=== PATIENT | female | born 1950 | race African-American/Black ===

== ENCOUNTER 2017-08-05 13:25 | Emergency (ER) | payer MEDICARE, MEDICAID ==
[~2017-08-05] VITALS: Ht 162.6 cm; Wt 54.4 kg
[2017-08-05 13:32] VITALS: BP 141/83
[2017-08-05] MEDS ORDERED: TYLENOL EXTRA500 MG ORAL (14:18)
--- NOTE | 2017-08-05 14:22 | Emergency Room Report ---
History of Present Illness General Chief Complaint: Pain Source: Patient Present Illness HPI 67 yo female patient reports to ER complaining of right leg pain and numbness after walking. Patient denies recent injury. Denies recent travel. Reports numbness in right leg. Denies back pain. Denies hx of CA or drug use. Denies calf swelling. Denies taking blood thinning medication. Denies recent travel. Reports sleeping on her right side. Denies bowel or bladder problems. Patient reports taking Soma for pain symptoms. Denies fever, chest pain, SOB, abdominal pain, rash. Patient requesting pain medication. Allergies: Coded Allergies: No Known Allergies (Unverified , 08/05/17) Patient History Past Medical History: see triage record Reviewed Nursing Documentation: PMH: Agreed, PSxH: Agreed Nursing Documentation-PMH Past Medical History: No Stated History Review of Systems All Other Systems: negative except mentioned in HPI Physical Exam Vital Signs Date Time Temp Pulse Resp B/P (MAP) Pulse Ox O2 Delivery O2 Flow Rate FiO2 08/05/17 13:32 209.5 18 141/83 97 Room Air 209.5 08/05/17 13:32 95 Sp02 EP Interpretation: reviewed, normal General Appearance: well appearing, no apparent distress, alert, GCS 15, non- toxic Head: normocephalic, atraumatic Eyes: bilateral eye normal inspection, bilateral eye PERRL ENT: hearing grossly normal, normal pharynx, no angioedema, normal voice, uvula midline, moist mucus membranes Neck: full range of motion Respiratory: lungs clear, normal breath sounds, no rhonchi, no respiratory distress, no accessory muscle use, no wheezing, speaking full sentences Cardiovascular #1: regular rate, rhythm, no edema Cardiovascular #2: 2+ dorsalis pedis (R), 2+ dorsalis pedis (L) Musculoskeletal: back normal, digits/nails normal, gait/station normal, normal range of motion, non-tender, no calf tenderness, pelvis stable, Erin's Sign negative, other - no swelling, no TTP, Sensatin intact to light touch, negative syndesmotic squeeze test, NVI, Negative Kiera, Negative Greta Neurologic: alert, oriented x3, responsive, motor strength/tone normal, sensory intact Psychiatric: mood/affect normal Reflexes: 2+ knee (R), 2+ knee (L) Skin: no rash Lymphatic: no adenopathy Medical Decision Making PA Attestation Dr. Cameron is my supervising Physician whom patient management has been discussed with. Diagnostic Impression: Primary Impression: Lower extremity numbness ER Course Pt. presents to the ED c/o right leg pain and numbness. Ddx considered but are not limited to fracture, sprain, strain, contusion, cellulitis, DVT. Low suspicion for DVT per Wells criteria. Vital signs: are WNL, pt. is afebrile PE benign, full ROM, no swelling, no ecchymosis, no TTP. Patient able to ambulate independently, without difficulty. Does not require imaging at this time. ED COURSE: No interventions at this time. Patient reports symptoms OK now but when she walks outside "suddenly the pain will return." Crutches not required at this time. CURES report shows patient recently received prescription for Acetaminophen- Codeine 300-60 and Soma on July 19 2017. Will not provide further opiate pain medication at this time. DISCHARGE: -Rx provided for Tylenol for pain symptoms. At this time pt. is stable for d/c to home. Patient resting comfortably, in no acute distress, nontoxic appearing, smiling and talking on phone. Will provide printed patient care instructions, and any necessary prescriptions. Patient instructed to follow with primary care provider in 3 - 5 days and to request further orthopedic and cardiology follow-up. F/u for diabetes testing. Care plan and follow up instructions have been discussed with the patient prior to discharge. Patient instructed on RICE method: rest, ice, compression, elevation. Patient instructed to WBAT. Take medications as directed. Patient questions asked and answered. Patient reprots understanding and agreement to treatment plan. ER precautions given, patient instructed to return to ER immediately for any new or worsening of symptoms. Last Vital Signs Date Time Temp Pulse Resp B/P (MAP) Pulse Ox O2 Delivery O2 Flow Rate FiO2 08/05/17 13:32 98.6 95 18 141/83 97 Room Air 98.6 Disposition: HOME, SELF-CARE Condition: Stable Scripts Acetaminophen* (TYLENOL EXTRA STRENGTH*) 500 Mg Tablet 500 MG ORAL Q8H Y for Prn Headache/Temp > 101, #30 TAB 0 Refills Prov: Esteban Real 08/05/17 Patient Instructions: PAIN, Uncertain Cause (Acute) Additional Instructions: Patient instructed to follow up with primary care provider and discuss further referral to orthopedics. Discuss referral to cardiology. Discuss testing for Diabetes with PCP. Patient instructed on RICE method: rest, ice, compression, elevation. Patient instructed to WBAT. Take medications as directed. Patient questions asked and answered. ER precautions given, patient instructed to return to ER immediately for any new or worsening of symptoms. Esteban Real Aug 05, 2017 14:22
[2017-08-05 14:31] VITALS: BP 143/85
[2017-08-05 14:32] VITALS: BP 141/83
== END 2017-08-05 14:32 | disposition home or self-care (01) ==
LOC: EMR 14:07
DX: R20.0 Anesthesia of skin (principal); M79.604 Pain in right leg
CPT/HCPCS: 99284

== ENCOUNTER 2018-03-31 17:49 | Emergency (ER) | payer MEDICARE, MEDICAID ==
[~2018-03-31] VITALS: Ht 160 cm; Wt 64.9 kg
[~2018-03-31 17:49] MED LIST: TYLENOL EXTRA500 MG ORAL
[2018-03-31 18:16] VITALS: BP 149/93
--- NOTE | 2018-03-31 19:38 | Emergency Room Report ---
History of Present Illness General Chief Complaint: Skin Rash/Abscess Source: Patient Present Illness HPI Mrs. Roberts presents with infected bug bites of left foot and left arm. Has redness and swelling on left foot. NO fever. No known injury. No hx of DM Allergies: Coded Allergies: No Known Allergies (Unverified , 08/05/17) Nursing Documentation-[facility] Past Medical History: No History, Except For Hx Hypertension: Yes Review of Systems Constitutional: Denies: fever, malaise Skin: Reports: rash, change in color Physical Exam Vital Signs Date Time Temp Pulse Resp B/P (MAP) Pulse Ox O2 Delivery O2 Flow Rate FiO2 03/31/18 18:16 98.1 75 18 149/93 98 Room Air Sp02 EP Interpretation: reviewed, normal General Appearance: normal inspection, well appearing, no apparent distress, alert, GCS 15, non-toxic Eyes: bilateral eye normal inspection ENT: moist mucus membranes Respiratory: no respiratory distress Psychiatric: normal inspection, judgement/insight normal, memory normal Skin: other - two 1 cm areas of excoriations on left foot with 5 cm x 5 cm area of erythema and edema, left upper arm 1 cm small abrasion Medical Decision Making Diagnostic Impression: Primary Impression: Cellulitis of left foot ER Course rx: bactrim keflex for left foot cellulitis. no cellulitis of the left upper extremity Last Vital Signs Date Time Temp Pulse Resp B/P (MAP) Pulse Ox O2 Delivery O2 Flow Rate FiO2 03/31/18 18:16 98.1 75 18 149/93 98 Room Air Disposition: HOME, SELF-CARE Condition: Stable Referrals: NOT CHOSEN IPA/,REFERRING (PCP) Ashley Stephens MD Mar 31, 2018 19:38
[2018-03-31] MEDS ORDERED: CEPHALEXIN500 MG ORAL (19:40)
[2018-03-31] MEDS ORDERED: BACTRIM DS TAB1 EAC1 ORAL (19:40)
[2018-03-31 19:46] VITALS: BP 149/93
== END 2018-03-31 19:47 | disposition home or self-care (01) ==
LOC: EMR 18:46
DX: L03.116 Cellulitis of left lower limb (principal); I10 Essential (primary) hypertension
CPT/HCPCS: 99282

== ENCOUNTER → 2019-01-21 | Outpatient (CLI) | payer MEDICARE, MEDICAID ==
[~2019-01-21] MED LIST changes: +BACTRIM DS TAB1 EAC1 ORAL; +CEPHALEXIN500 MG ORAL
[2019-01-21 11:51] LABS: BASOPHILS % (AUTO) 0.9 % (0.0-2.0); EOSINOPHILS % (AUTO) 4.7 % (0.0-3.0); HEMATOCRIT 42.6 % (37.0-47.0); HEMOGLOBIN 14.1 G/DL (12.0-16.0); LYMPHOCYTES % (AUTO) 31.3 % (20.0-45.0); MEAN CORPUSCULAR VOLUME 95 FL (80-99); MONOCYTES % (AUTO) 8.9 % (1.0-10.0); NEUTROPHILS % (AUTO) 54.1 % (45.0-75.0); PLATELET COUNT 166 K/UL (150-450); RED CELL DISTRIBUTION WIDTH 12.1 % (11.6-14.8); WHITE BLOOD COUNT 7.8 K/UL (4.8-10.8)
[2019-01-21 12:16] LABS: ALANINE AMINOTRANSFERASE 18 U/L (12-78); ALBUMIN 3.8 G/DL (3.4-5.0); ALKALINE PHOSPHATASE 137 U/L (46-116); ANION GAP 7 mmol/L (5-15); ASPARTATE AMINO TRANSFERASE 19 U/L (15-37); BILIRUBIN,TOTAL 0.4 MG/DL (0.2-1.0); BLOOD UREA NITROGEN 22 mg/dL (7-18); CALCIUM 8.9 MG/DL (8.5-10.1); CARBON DIOXIDE 28 MMOL/L (21-32); CHLORIDE 109 MMOL/L (98-107); CHOLESTEROL 158 MG/DL (< 200); HDL CHOLESTEROL 64 MG/DL (40-60); POTASSIUM 3.6 MMOL/L (3.5-5.1); SODIUM 143 MMOL/L (136-145); TRIGLYCERIDES 51 MG/DL (30-150)
[2019-01-22 11:12] LABS: APPEARANCE,URINE CLEAR; BILIRUBIN, URINE NEGATIVE (NEGATIVE); COLOR,URINE PALE YELLOW; GLUCOSE, URINE (UA) NEGATIVE (NEGATIVE); KETONES,URINE NEGATIVE (NEGATIVE); LEUKOCYTE ESTERASE ,URINE 2+ (NEGATIVE); NITRITE,URINE NEGATIVE (NEGATIVE); PH,URINE 7 (4.5-8.0); PROTEIN,URINE NEGATIVE (NEGATIVE); UROBILINOGEN,URINE NORMAL MG/DL (0.0-1.0)
== END | disposition home or self-care (01) ==
LOC: LAB 10:30
DX: I10 Essential (primary) hypertension (principal); R53.1 Weakness; M79.604 Pain in right leg
CPT/HCPCS: 36415; 80053; 80061; 81001; 84443; 85025

== ENCOUNTER 2019-08-22 13:55 | Emergency (ER) | payer MEDICARE, MEDICAID ==
[~2019-08-22] VITALS: Ht 162.6 cm; Wt 72.6 kg
[2019-08-22 14:21] VITALS: BP 153/94
--- NOTE | 2019-08-22 14:31 | NUR ---
ED Nurse Note: Pt walked in for medication refill. No reports of acute distress. AAO x4 and ambulatory.
[2019-08-22] MEDS ORDERED: HYDRALAZINE HCL25 M1 ORAL (14:40)
[2019-08-22] MEDS ORDERED: ATORVASTATIN CA10 MG ORAL (14:40)
[2019-08-22] MEDS ORDERED: NORCO 5-325 TA1 EAC1 ORAL (14:40)
[2019-08-22 14:54] VITALS: BP 149/90
--- NOTE | 2019-08-22 14:54 | NUR ---
ER DISCHARGE NOTE: Patient is cleared to be discharged per ERMD, pt is aox4, on room air, with stable vital signs. pt was given dc and prescription instructions, pt was able to verbalize understanding, pt id band removed without complications. pt is able to ambulate with steady gait. pt took all belongings.
--- NOTE | 2019-08-22 15:12 | Emergency Room Report ---
History of Present Illness General Chief Complaint: Medication Refill Source: Patient, Medical Record Present Illness HPI Patient presents with for medications to be refilled patient reports that she has history of hypertension and high cholesterol Also chronic pain does not know the names of her blood pressure and cholesterol medicine however reports that she takes Nenzel For pain Denies any chest pain or shortness of breath denies any vomiting denies any fevers or chills Allergies: Coded Allergies: No Known Allergies (Unverified , 08/05/17) COVID-19 Screening Contact w/high risk pt: No Recent Travel to affected area: No Experienced COVID-19 symptoms?: No Patient History Past Medical History: see triage record Reviewed Nursing Documentation: PMH: Agreed; PSxH: Agreed Nursing Documentation-PMH Hx Hypertension: Yes Review of Systems All Other Systems: negative except mentioned in HPI Physical Exam Vital Signs Date Time Temp Pulse Resp B/P (MAP) Pulse Ox O2 Delivery O2 Flow Rate FiO2 08/22/19 14:21 98.1 70 16 153/94 98 Room Air Sp02 EP Interpretation: reviewed, normal General Appearance: well appearing, no apparent distress Head: normocephalic, atraumatic Eyes: bilateral eye PERRL, bilateral eye EOMI ENT: hearing grossly normal, normal pharynx, TMs + canals normal, uvula midline Neck: full range of motion, supple, no meningismus, no bony tend Respiratory: lungs clear, normal breath sounds, no rhonchi, no respiratory distress, no retraction, no accessory muscle use Cardiovascular #1: normal peripheral pulses, regular rate, rhythm, no edema, no gallop, no JVD, no murmur Gastrointestinal: normal bowel sounds, non tender, soft, no mass, no organomegaly, non-distended, no guarding, no hernia, no pulsatile mass, no rebound Genitourinary: no CVA tenderness Musculoskeletal: normal inspection Neurologic: motor strength/tone normal, contact center manager III-XII nml as tested, oriented x3 , sensory intact, responsive Psychiatric: mood/affect normal Skin: no rash Lymphatic: normal inspection, no adenopathy Medical Decision Making Diagnostic Impression: Primary Impression: hypertension ER Course Given that the patient does not know the names of her blood pressure on cholesterol medicine felt that it was inappropriate to start unknown medication patient on CURES appear to receive monthly Nenzel medication Therefore this was provided for the patient and small dose until she can see her primary physician And encouraged to contact the primary doctor office for further medication refill Last Vital Signs Date Time Temp Pulse Resp B/P (MAP) Pulse Ox O2 Delivery O2 Flow Rate FiO2 08/22/19 14:54 98.5 68 18 149/90 100 Room Air Status: unchanged Disposition: HOME, SELF-CARE Condition: Stable Scripts Hydrocodone Bit/Acetaminophen 5-325* (NORCO 5-325 TABLET*) 1 Each Tablet 1 TAB ORAL Q8HR PRN for FOR PAIN, #12 TAB 0 Refills Prov: Michelle Matute DO 08/22/19 Atorvastatin Calcium* (LIPITOR*) 10 Mg Tablet 10 MG ORAL BEDTIME, #20 TAB Prov: Michelle Matute DO 08/22/19 Hydralazine Hcl* (HYDRALAZINE HCL*) 25 Mg Tablet 25 MG ORAL DAILY, #30 TAB 0 Refills Prov: Michelle Matute DO 08/22/19 Referrals: Torin Rosa DO Patient Instructions: Hypertension, [id number] Additional Instructions: Patient is provided with the discharge instructions notified to follow up with primary doctor in the next 2-3 days otherwise return to the er with any worsening symptoms. Please note that this report is being documented using [employer] technology. This can lead to erroneous entry secondary to incorrect interpretation by the dictating instrument. Michelle Matute DO Aug 22, 2019 15:12
== END 2019-08-22 14:54 | disposition home or self-care (01) ==
LOC: EMR 14:52
DX: I10 Essential (primary) hypertension (principal); E78.00 Pure hypercholesterolemia, unspecified; G89.29 Other chronic pain
CPT/HCPCS: 99282